=== PATIENT | female | born 1995 | race African-American/Black ===

== ENCOUNTER 2017-08-21 18:13 | Emergency (ER) | payer OTHER ==
[~2017-08-21] VITALS: Ht 157.5 cm; Wt 70.3 kg
[~2017-08-21 18:13] MED LIST: AMOXIL 875 MG875 M1 PO; IBUPROFEN 800800 MG PO; NOHOMEMEDICATIONS
[2017-08-21 19:08] LABS: URINE BLOOD 3+ (Negative); URINE CLARITY TURBID; URINE COLOR YELLOW; URINE GLUCOSE-RANDOM* NEGATIVE (Negative); URINE KETONES 3+ (Negative); URINE NITRITE-REFLEX NEGATIVE (Negative); URINE PROTEIN (DIPSTICK) 1+ (Negative); URINE SPECIFIC GRAVITY >= 1.030 (1.005-1.035); URINE UROBILINOGEN 0.2 E.U./dl (0.2-1.0)
[2017-08-21 19:13] LABS: URINE LEUKOCYTES-REFLEX TRACE (Negative)
[2017-08-21 19:14] LABS: ICTOTEST (BILI CONFIRMATORY) Negative (Negative); URINE BILIRUBIN NEGATIVE (Negative)
[2017-08-21 19:23] LABS: SQUAMOUS 4-10 Moderate /LPF (0-3); URINE WBC-REFLEX 6-15 Few /HPF (0-5)
[2017-08-21 19:24] LABS: BACTERIA-REFLEX >30 Many /HPF (None Seen); CASTS None Seen /LPF (None Seen); MUCUS >6 Heavy strn/LPF (None Seen)
[2017-08-21 19:25] LABS: CRYSTALS None Seen /LPF (None Seen)
[2017-08-21 19:43] LABS: ABSOLUTE NEUTROPHILS 11.7 thou/uL (1.4-8.2); BASOPHILS 0.3 % (0.0-2.0); HEMATOCRIT 44.2 % (37.0-47.0); HEMOGLOBIN 15.3 gm/dL (12.0-15.0); MCHC 34.6 g/dL (28.0-37.0); MCV 86.5 fL (80.0-100.0); MONOCYTES 7.5 % (1.0-8.0); PLATELET COUNT 318 thou/uL (150-400); POLYS 84.2 % (36.0-66.0); RBC 5.11 mil/uL (4.20-5.00); RDW 13.2 % (10.5-14.5); WBC 13.9 thou/uL (4.0-11.0)
[2017-08-21 19:45] LABS: CALCIUM 10.3 mg/dL (8.5-10.1); POTASSIUM 3.2 mmol/L (3.5-5.1)
[2017-08-21 19:47] LABS: MAGNESIUM 1.9 mg/dL (1.8-2.4); PHOSPHORUS 3.4 mg/dL (2.5-4.9)
[2017-08-21 19:51] LABS: ALBUMIN 4.4 g/dL (3.4-5.0); TOTAL BILIRUBIN 0.6 mg/dL (<0.1-1.0); TOTAL PROTEIN 9.4 g/dL (6.4-8.2)
[2017-08-21] MEDS ORDERED: KEFLEX500 M1 PO (20:37)
[2017-08-21] MEDS ORDERED: PROMS25 WY RECTAL (20:37)
[2017-08-21 22:22] VITALS: BP 104/56
== END 2017-08-21 22:24 | disposition home or self-care (01) ==
LOC: ER 18:13
PROVIDERS: Emergency Medicine
DX: O21.1 Hyperemesis gravidarum with metabolic disturbance (principal); E86.0 Dehydration; N39.0 Urinary tract infection, site not specified; K59.00 Constipation, unspecified; K92.1 Melena; Z3A.01 Less than 8 weeks gestation of pregnancy

== ENCOUNTER 2018-07-14 12:11 | Emergency (ER) | payer OTHER ==
[~2018-07-14] VITALS: Ht 162.6 cm; Wt 86.2 kg
[~2018-07-14 12:11] MED LIST changes: +KEFLEX500 M1 PO; +PROMS25 WY RECTAL
[2018-07-14 12:12] VITALS: BP 108/84
[2018-07-14] MEDS ORDERED: IBUPROFEN 600600 M1 PO (14:17)
== END 2018-07-14 14:45 | disposition home or self-care (01) ==
LOC: ER 12:11
DX: S16.1XXA Strain of muscle, fascia and tendon at neck level, initial encounter (principal); S39.012A Strain of muscle, fascia and tendon of lower back, initial encounter; S80.12XA Contusion of left lower leg, initial encounter; S20.219A Contusion of unspecified front wall of thorax, initial encounter; V49.40XA Driver injured in collision with unspecified motor vehicles in traffic accident, initial encounter; Y93.89 Activity, other specified; Y92.89 Other specified places as the place of occurrence of the external cause; Y99.8 Other external cause status